=== PATIENT | male | born 1955 | race American Indian/Alaskan Native ===

== ENCOUNTER 2017-06-17 14:32 | Inpatient (IN) | payer MEDICARE, OTHER ==
--- NOTE | 2017-06-17 15:23 | Emergency Department Report ---
ED General Adult HPI - General Chief complaint: Puncture Wound Stated complaint: DIALYSIS PORT BLEEDING Time Seen by Provider: 06/17/17 14:53 Source: EMS Mode of arrival: Stretcher Limitations: No Limitations - History of Present Illness Initial comments: He presents emergency Department with complaint of bleeding from left arm dialysis access after puncture wound. Patient was the axis is approximately 1: 30 PM but continued to bleed until now. Direct pressure was applied at the dialysis center however he continues to have significant bleeding. No lightheadedness dizziness appears otherwise well. -: Sudden Location: upper extremity (left arm) Radiation: non-radiation Severity scale (0 -10): 0 Improves with: none Worsens with: none Associated Symptoms: denies other symptoms - Related Data Allergies Allergy/AdvReac Type Severity Reaction Status Date / Time shellfish derived Allergy Swelling Verified 06/17/17 14:51 ED Review of Systems ROS: Stated complaint: DIALYSIS PORT BLEEDING Other details as noted in HPI Comment: All other systems reviewed and negative Constitutional: denies: chills, diaphoresis Cardiovascular: denies: chest pain, palpitations Gastrointestinal: denies: abdominal pain, nausea Musculoskeletal: back pain ED Past Medical Hx - Past Medical History Previous Medical History?: Yes Hx Hypertension: Yes Hx Diabetes: Yes Hx Renal Disease: Yes - Surgical History Past Surgical History?: Yes Hx Cholecystectomy: Yes Hx Appendectomy: Yes - Social History Smoking Status: Never Smoker Substance Use Type: Marijuana ED Physical Exam - General Limitations: No Limitations General appearance: alert, in no apparent distress - Head Head exam: Present: atraumatic, normocephalic - Eye Eye exam: Present: normal appearance. Absent: scleral icterus - ENT ENT exam: Present: normal exam - Neck Neck exam: Present: normal inspection - Respiratory Respiratory exam: Present: normal lung sounds bilaterally. Absent: respiratory distress - Cardiovascular Cardiovascular Exam: Present: regular rate, normal rhythm - GI/Abdominal GI/Abdominal exam: Present: soft - Extremities Exam Extremities exam: Present: other (small puncture wound in the left upper extremity with active arterial bleeding) - Neurological Exam Neurological exam: Present: alert, oriented X3 - Psychiatric Psychiatric exam: Present: normal affect - Skin Skin exam: Present: warm, dry, intact ED Course Vital Signs 06/17/17 06/17/17 06/17/17 14:34 14:48 17:05 Temperature 98.4 F 98.4 F Pulse Rate 64 64 74 Respiratory 16 16 16 Rate Blood Pressure 132/80 Blood Pressure 132/80 127/70 [Right] O2 Sat by Pulse 98 96 95 Oximetry ED Medical Decision Making - Lab Data Result diagrams: 06/17/17 15:26 Laboratory Results - last 24 hr 06/17/17 06/17/17 15:23 15:26 WBC 9.9 RBC 4.90 Hgb 15.6 H Hct 47.5 H MCV 97 H MCH 32 MCHC 33 RDW 15.8 H Plt Count 235 Lymph % (Auto) 11.1 L [place] % (Auto) 9.5 H Eos % (Auto) 1.1 Baso % (Auto) 0.6 Lymph # 1.1 L [place] # 0.9 H Eos # 0.1 Baso # 0.1 Seg Neutrophils % 77.7 H Seg Neutrophils # 7.7 PT 14.2 INR 1.05 - Medical Decision Making 62-year-old male with a history of end-stage renal disease here with left arm bleeding from his dialysis access. Clamp placed by dialysis center at 1:30 PM. On my evaluation puncture wound is still bleeding. Surgicel placed with clamp and reassessed approximately 45 minutes later. Still bleeding. Discussed case with asthma surgery. They came and repaired wound with a single [id number] suture. Given this bleeding episode that surgery recommends that the patient have fistulogram. Pointing to admit the patient to the hospital for the fistulogram. Dr. Lugo evaluated the patient in the emergency department. Plan to give doses of IV DDAVP and place patient on nothing by mouth. Will admit to IMS. Portions of this chart were dictated with dictation software. There may be dictation errors contained within this note. Critical Care Time: Yes Critical care attestation.: If time is entered above; I have spent that time in minutes in the direct care of this critically ill patient, excluding procedure time. Critical Care Time: 35 ED Disposition Clinical Impression: Bleeding from dialysis shunt Disposition: - OP ADMIT IP TO THIS HOSP Is pt being admited?: Yes Condition: Stable Referrals: PRIMARY CARE, [Primary Care Provider] - 3-5 Days
[2017-06-17 15:47] LABS: Basophils % (Auto) 0.6 % (0.0-1.8); Eosinophils % (Auto) 1.1 % (0.0-4.3); Hematocrit 47.5 % (35.5-45.6); Hemoglobin 15.6 gm/dl (11.8-15.2); Mean Corpuscular HGB Conc 33 % (32-34); Mean Corpuscular Hemoglobin 32 pg (28-32); Mean Corpuscular Volume 97 fl (84-94); Platelet Count 235 K/mm3 (140-440); Red Cell Distribution Width 15.8 % (13.2-15.2); White Blood Count 9.9 K/mm3 (4.5-11.0)
[2017-06-17 15:59] LABS: INR 1.05 (0.87-1.13)
[2017-06-17] MEDS ORDERED: XYLOCAINE 1%/ EPI 1:100,000 INFILTRATI NR (17:00)
--- NOTE | 2017-06-17 17:39 | Consultation ---
History of Present Illness - Reason for Consult Consult date: 06/17/17 Bleeding from LUE AVF Requesting physician: YOVANNY DANIELLE - History of Present Illness This pt is a 62 yo AAM with ESRD who presented to the ER at [facility] due to bleeding from his LUE AVF. [facility]. He has had 1 previous fistulagram with angioplasty several months ago. A vascular surgery consult was requested to further evaluate. Past History Past Medical History: diabetes, dialysis, ESRD, hypertension Past Surgical History: appendectomy, cholecystectomy, Other (LUE avf (?elevated Brachio-basilic ) creation by [facility] ~2.5 yrs ago, fistulagram with angioplasty several months ago.) Social history: other (marijuana use). denies: smoking Family history: no significant family history Medications and Allergies Allergies Allergy/AdvReac Type Severity Reaction Status Date / Time shellfish derived Allergy Swelling Verified 06/17/17 14:51 Active Meds: Active Medications Lidocaine/Epinephrine (Xylocaine 1%/ Epi 1:100,000) 20 ml INFILTRATI ONCE NR Stop: 06/17/17 19:00 Lidocaine/Epinephrine (Xylocaine 2%/Epi 1:100,000) 20 ml INFILTRATI ONCE ONE Stop: 06/17/17 18:01 Review of Systems All systems: negative Exam - Constitutional Vitals: Temp Pulse Resp BP Pulse Ox 98.4 F 74 16 127/70 95 06/17/17 14:48 06/17/17 17:05 06/17/17 17:05 06/17/17 17:05 06/17/17 17:05 General appearance: Present: no acute distress - EENT Eyes: Present: EOM intact ENT: hearing intact - Neck Neck: Present: supple - Respiratory Respiratory effort: normal - Extremities Extremities: no ischemia, abnormal (LUE avf with C-clamp in place. Once removed pt was bleeding from small puncture site easily controlled with light pressure from 1 finger. Palp thrill. ) - Psychiatric Psychiatric: appropriate mood/affect, intact judgment & insight, cooperative - Neurologic Neurologic: no focal deficits Results - Labs CBC & Chem 7: 06/17/17 15:26 Labs: Abnormal lab results 06/17/17 Range/Units 15:26 Hgb 15.6 H (11.8-15.2) gm/dl Hct 47.5 H (35.5-45.6) % MCV 97 H (84-94) fl RDW 15.8 H (13.2-15.2) % Lymph % (Auto) 11.1 L (13.4-35.0) % [place] % (Auto) 9.5 H (0.0-7.3) % Lymph # 1.1 L (1.2-5.4) K/mm3 [place] # 0.9 H (0.0-0.8) K/mm3 Seg Neutrophils % 77.7 H (40.0-70.0) % Assessment and Plan Pt present to the ER at [facility] due to bleeding from his LUE AVF. A vascular surgery consult was requested to further eval. Dr Lugo placed a 3-0 prolene suture at the puncture site, and bleeding was controlled. Would recommend giving DDAVP due to Plt dysfunction associated with renal failure, which likely has contributed to the situation. Pt needs fistulagram, and possible angioplasty of AV access. 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 This should be completed prior to his next HD treatment or else he will likely have a similar result. If this can not be arranged by the [facility] in a timely fashion, he can be admitted and the procedure will be completed tomorrow by our service. The R,B, and A were discussed with the Pt who stated understanding and has agreed to proceed. If the pt is admitted, please place consult to our service, and add to our list. Thank you. - Patient Problems (1) Dialysis AV fistula malfunction Current Visit: Yes Status: Acute Qualifiers: Encounter type: E (2) ESRD (end stage renal disease) on dialysis Current Visit: Yes Status: Acute (3) Hypertension Current Visit: Yes Status: Acute Qualifiers: Hypertension type: H (4) Diabetes Current Visit: Yes Status: Acute Qualifiers: Diabetes mellitus type: D Diabetes mellitus complication status: D Diabetes mellitus complication detail: D Diabetic retinopathy severity: D Proliferative retinopathy type: P Diabetes mellitus macular edema: D Diabetes mellitus senior living insulin use: D Laterality: L Chronic kidney disease stage: C
[2017-06-17] MEDS ORDERED: XYLOCAINE 2%/EPI 1:100,000 INFILTRATI ONE (18:00)
[2017-06-17] MEDS ORDERED: DDAVP 20 MCG in NACL 0.9% 50 ML IV ONE (18:00)
--- NOTE | 2017-06-17 18:13 | History and Physical Report ---
History of Present Illness Chief complaint: Im bleeding all over the place History of present illness: 62 YO Male with ESRD on HD(M,W,F), HTN, DM presents to ED for evaluation. Pt states that he has experienced bleeding from his AV fistula site for the past 3 hours. Pt states that symptoms began after his site was accessed for dialysis. Pt denies fever, chills, CP, Palpitations, NVD, syncope, or recent ill contacts. Pt seen and evaluated in ED and found to have bleeding from AV fistula site. Vascular surgery consulted, and bleeding controlled with placement of suture. Past History Past Medical History: diabetes, dialysis, ESRD, hypertension Past Surgical History: appendectomy, cholecystectomy, Other (LUE avf (?elevated Brachio-basilic ) creation by [facility] ~2.5 yrs ago, fistulagram with angioplasty several months ago.) Social history: other (marijuana use). denies: smoking Family history: no significant family history, other (reviewed) Medications and Allergies Allergies Allergy/AdvReac Type Severity Reaction Status Date / Time shellfish derived Allergy Swelling Verified 06/17/17 14:51 Home Medications Medication Instructions Recorded Confirmed Last Taken Type Ascorbic Acid [Vitamin C with Courtney 1.5 tab PO TID 06/17/17 06/17/17 Unknown History Hips] Aspirin [Adult Low Dose Aspirin EC] 81 mg PO QDAY 06/17/17 06/17/17 Unknown History Calcium Acetate [Calcium Acetate] 4 cap PO QID 06/17/17 06/17/17 Unknown History Furosemide [Lasix TAB] 120 mg PO BID 06/17/17 06/17/17 Unknown History Metoprolol [Lopressor TAB] 25 mg PO BID 06/17/17 06/17/17 Unknown History amLODIPine [Norvasc] 5 mg PO QDAY 06/17/17 06/17/17 Unknown History Active Meds: Active Medications Desmopressin Acetate 20 mcg/ (Sodium Chloride) 55 mls @ 100 mls/hr IV ONCE.ED ONE Stop: 06/17/17 18:32 Lidocaine/Epinephrine (Xylocaine 1%/ Epi 1:100,000) 20 ml INFILTRATI ONCE NR Stop: 06/17/17 19:00 Review of Systems Constitutional: no weight loss, no weight gain Ears, nose, mouth and throat: no ear pain Cardiovascular: no chest pain Respiratory: no cough with sputum Gastrointestinal: no nausea, no vomiting Genitourinary Male: no hematuria Rectal: no pain Musculoskeletal: no neck pain Integumentary: no rash Neurological: no head injury Psychiatric: no anxiety Endocrine: no cold intolerance, no heat intolerance Hematologic/Lymphatic: no easy bruising, no easy bleeding Allergic/Immunologic: no urticaria Exam - Constitutional Vitals: Temp Pulse Resp BP Pulse Ox 98.4 F 74 16 127/70 95 06/17/17 14:48 06/17/17 17:05 06/17/17 17:05 06/17/17 17:05 06/17/17 17:05 General appearance: Present: mild distress - EENT Eyes: Present: PERRL ENT: hearing intact, clear oral mucosa - Neck Neck: Present: supple, normal ROM - Respiratory Respiratory effort: normal Respiratory: bilateral: CTA - Cardiovascular Heart Sounds: Present: S1 & S2. Absent: rub, click - Extremities Extremities: pulses symmetrical, No edema Extremity abnormal: other (LUE bleeding) Peripheral Pulses: within normal limits - Abdominal General gastrointestinal: Present: soft, non-tender, non-distended, normal bowel sounds Male genitourinary: Present: normal - Integumentary Integumentary: Present: clear, warm, dry - Musculoskeletal Musculoskeletal: gait normal, strength equal bilaterally - Psychiatric Psychiatric: appropriate mood/affect, intact judgment & insight - Neurologic Neurologic: CNII-XII intact, moves all extremities Results - Labs CBC & Chem 7: 06/17/17 15:26 Labs: Abnormal lab results 06/17/17 Range/Units 15:26 Hgb 15.6 H (11.8-15.2) gm/dl Hct 47.5 H (35.5-45.6) % MCV 97 H (84-94) fl RDW 15.8 H (13.2-15.2) % Lymph % (Auto) 11.1 L (13.4-35.0) % [place] % (Auto) 9.5 H (0.0-7.3) % Lymph # 1.1 L (1.2-5.4) K/mm3 [place] # 0.9 H (0.0-0.8) K/mm3 Seg Neutrophils % 77.7 H (40.0-70.0) % Assessment and Plan - Patient Problems (1) Dialysis AV fistula malfunction Current Visit: Yes Status: Acute Qualifiers: Encounter type: E Plan to address problem: Vascular surgery consulted, fistulagram in am, repeat physical exam (2) Diabetes Current Visit: Yes Status: Resolved Qualifiers: Diabetes mellitus type: D Diabetes mellitus complication status: D Diabetes mellitus complication detail: D Diabetic retinopathy severity: D Proliferative retinopathy type: P Diabetes mellitus macular edema: D Diabetes mellitus jail insulin use: D Laterality: L Chronic kidney disease stage: stage 4 (severe) Plan to address problem: ADA diet, insulin accu check (3) ESRD (end stage renal disease) on dialysis Current Visit: Yes Status: Acute Plan to address problem: Nephrology consulted, dialysis as per renal schedule (4) Hypertension Current Visit: Yes Status: Acute Qualifiers: Hypertension type: H Plan to address problem: monitor bp q shift, resume home medication (5) DVT prophylaxis Current Visit: Yes Status: Acute
[2017-06-17] MEDS ORDERED: PROVENTIL IH PRN (18:14)
[2017-06-17] MEDS ORDERED: ZOFRAN IV PRN (18:14)
[2017-06-17] MEDS ORDERED: TYLENOL PO PRN (18:14)
--- NOTE | 2017-06-17 18:16 | Admit Criteria Form ---
Admission Criteria Documentation: GENERAL ADMISSION CRITERIA (Place 'X' for any and all applicable criteria): Admission is indicated for ANY ONE of the following: [ ]I. Hemodynamic instability as indicated by ANY ONE of the following(1)(2) (3)(4)(5): [ ]a) Vital sign abnormality not readily corrected by appropriate treatment within 12 to 24 hours indicated by ANY ONE of the following: [ ]i) Hypotension [ ]ii) Symptomatic Tachycardia unresponsive to treatment (eg , analgesia, fluids, sedation as indicated) [ ]iii) Orthostatic vital sign changes unresponsive to treatment (eg, fluids) [ ]b) Vital sign abnormality that is severe indicated by ANY ONE of the following: [ ]i) Inadequate perfusion indicated by ANY ONE of the following: [ ]1) Lactic acidosis (greater than 2 mmol/L) [ ]2) New abnormal capillary refill (greater than 3 seconds) [ ]3) Other metabolic acidosis (arterial pH less than 7.35) not otherwise explained [ ]4) Reduced urine output [ ]5) Altered mental status [ ]6) Myocardial Ischemia [ ]v) Mean arterial pressure[A] less than 60 mm Hg [ ]vi) Mean arterial pressure[A] less than 70 mm Hg after 30 minutes of appropriate treatment (eg, fluid resuscitation) [ ]vii) IV inotropic or vasopressor medication required to maintain adequate blood pressure or perfusion [ ]viii) Sustained heart rate greater than 120 beats per minute in adult or child 6 years or older[B]] [ ]II. Hypertension requiring inpatient treatment as indicated by ANY ONE of the following(6)(7)(8): [ ]a) SBP greater than 220 mm Hg or DBP greater than 120 mm Hg despite treatment [ ]b) SBP greater than 140 mm Hg or DBP greater than 100 mm Hg with evidence of acute end organ damage as indicated by ANY ONE of the following: [ ]i) Encephalopathy [ ]ii) Acute renal failure as indicated by new onset of ANY ONE of the following(9)(10)(11)(12)(13): [ ]1) A 3-fold rise in serum creatinine from baseline [ ]2) Serum creatinine greater than 4 mg/dL ( 354 micromoles/L) with acute rise greater than 0.5 mg/dL (44.2 micromoles/L) [ ]3) Reduction of more than 75% in estimated glomerular filtration rate from baseline [ ]4) Estimated glomerular filtration rate less than 35 mL/min/1.73m2 (0.59 mL/sec/1.73m2) in child up to 18 years of age [ ]5) Cessation of urine output indicated by ALL of the following: [ ]A. Adequate volume status [ ]B. Inadequate urine output as indicated by ANY ONE of the following: [ ]a. Urine output less than 0.3 mL/kg/hr for 24 hours [ ]b. Anuria (urine output less than 0.1 mL/kg/hr) for 12 hours [ ]iii) Aortic dissection [ ]iv) Myocardial ischemia [ ]v) Left ventricular heart failure [ ]vi) Retinal hemorrhage [ ]vii) Other significant finding [ ]c) Hypertension in child requiring inpatient treatment as indicated by ALL of the following(14)(15)(16): [ ]i) Outpatient treatment not effective, not available, or not appropriate [ ]ii) SBP or DBP greater than 95th percentile for age [ ]iii) Evidence of acute end organ damage as indicated by ANY ONE of the following: [ ]1) Altered mental status [ ]2) Acute renal failure as indicated by new onset of ANY ONE of the following(9)(10)(11)(12)(13): [ ]A. A 3-fold rise in serum creatinine from baseline [ ]B. Serum creatinine greater than 4 mg/dL (354 micromoles/L) with acute rise greater than 0.5 mg/dL (44.2 micromoles/L) [ ]C. Reduction of more than 75% in estimated glomerular filtration rate from baseline [ ]D. Estimated glomerular filtration rate less than 35 mL/min/1.73m2 (0.59 mL/sec/1.73m2)in child up to 18 years of age [ ]E. Cessation of urine output indicated by ALL of the following: [ ]a. Adequate volume status [ ]b. Inadequate urine output as indicated by ANY ONE of the following: [ ]1) Urine output less than 0.3 mL/kg/hr for 24 hours [ ]2) Anuria (urine output less than 0.1 mL/kg/hr) for 12 hours [ ]3) Severe headache [ ]4) Visual disturbance [ ]5) Retinal hemorrhage [ ]6) Other significant finding [ ]III. Acute cardiac or peripheral ischemia as indicated by ANY ONE of the following: [ ]a) Acute coronary syndrome(17)(18) [ ]b) Acute peripheral ischemia (eg, pulseless, cool, mottled, or cyanotic extremity)(19) [ ]IV. Cardiac arrhythmias or findings of immediate concern indicated by ANY ONE of the following(20)(21): [ ]a) Heart rhythms that are inherently dangerous or unstable indicated by ANY ONE of the following(22)(23)(24): [ ]i) Resuscitated ventricular fibrillation or cardiac arrest [ ]ii) Ventricular escape rhythm [ ]iii) Sustained ventricular tachycardia (30 seconds or more of ventricular rhythm at greater than 100 beats per minute) [ ]iv) Nonsustained ventricular tachycardia and ANY ONE of the following: [ ]1) Suspected cardiac ischemia as cause or consequence of ventricular tachycardia [ ]2) In setting of acute myocarditis [ ]b) Unstable cardiac conduction defects indicated by ANY ONE of the following(24)(25)(26): [ ]i) Type II second-degree atrioventricular block [ ]ii) Third-degree atrioventricular block [ ]iii) New-onset left bundle branch block with suspected myocardial ischemia [ ]c) Any heart rhythm and ANY ONE of the following(22)(23)(27)(28)( 29): [ ] i) Continuous long-term ECG monitoring needed (eg, initiation of drug requiring monitoring for more than 24 hours) [ ] ii) Patient has automatic implanted cardioverter defibrillator that is repeatedly firing, malfunctioning, or in need of immediate adjustment of settings beyond the scope of ambulatory or observation care. [ ]d) Heart rhythms of concern due to ANY ONE of the following: [ ]i) Hypotension [ ]ii) Respiratory distress [ ]iii) Association with other significant symptoms (eg, bradycardia with syncope or ongoing dizziness, supraventricular tachycardia with chest pain) (27)(28) (30) [ ] V. Severe heart failure as indicated by ANY ONE of the following ( 31)(32): [ ]a) Respiratory distress [ ]b) Hypotension [ ]c) Anasarca (refractory to outpatient therapy) [ ]d) Cardiac arrhythmias of immediate concern [ ]e) Myocardial ischemia [ ]. Respiratory abnormalities, including ANY ONE of the following(33)(34) (35)(36): [ ]a) Respiratory rate greater than 30 breaths per minute unresponsive to treatment [A] [ ]b) New saturation of arterial oxygen less than 90% [ ]c) New partial pressure of carbon dioxide greater than 44 mm Hg ( 5.9 kPa) [ ]d) Supplemental oxygen or respiratory treatments needed that are new or not performable at other levels of care [ ]e) New-onset cyanosis [ ]f) Inability to protect airway [ ]g) Chronic lung disease with severe deterioration (not responsive to emergency and observation care treatment as appropriate) as indicated by ANY ONE of the following(34)(36 ): [ ]i) SaO2 5% below baseline in patient with chronic hypoxemia [ ]ii) New requirement for supplemental oxygen to keep SaO2 at baseline or acceptable level [ ]iii) Required supplemental oxygen performable only in acute inpatient setting [ ]iv) Severe airflow or ventilation abnormalities [ ]v) Previously mobile patient unable to walk between rooms [ ]vi Inability to eat or sleep due to dyspnea [ ]vii) Rapid rate of exacerbation onset [ ]viii) Altered mental status ]VII. Severe airflow or ventilation abnormalities (not responsive to emergency and observation care treatment as appropriate) as indicated by ANY ONE of the following(33)(34)(35)(37): [ ]a) PCO2 greater than 42 mm Hg (5.6 kPa) and pH less than 7.35 (new ) [ ]b) Documented PCO2 increased more than 5 mm Hg (0.7 kPa) from disease baseline [ ]c) Airflow measurements [B] less than 60% of previous best or predicted (eg, peak expiratory flow rate less than 300 L/minute) despite intensive emergent treatment [C] [ ]d) Required respiratory treatments that are performable only in acute inpatient setting [ ]VIII. Impending or actual respiratory arrest ( Also use Respiratory Failure GRG for severe respiratory disease and long-term mechanical ventilation patients) [ ]IX. Neurologic abnormalities, including ANY ONE of the following: [ ]a) New findings that suggest ANY ONE of the following: [ ]i) [employer] infection(38) [ ]ii) Cerebral bleeding, ischemia, or vasospasm(39)(40) [ ]iii) Increased intracranial pressure, hydrocephalus, or cerebral edema(41)(42)(43) [ ]iv) Spinal cord injury(44) [ ]b) Uncontrolled seizures(45) [ ]c) New-onset coma (eg, Cobb coma scale score less than 9) or unexplained abnormal mental status (eg, Cobb coma scale score less than 14) [D](41)(46)(47) [ ]X. New-onset severe neurologic findings requiring inpatient care; examples include(42)(48)(49): [ ]a) Papilledema [ ]b) Cerebral edema [ ]c) Mass effect on CT scan [ ]XI. Suspected acute intra-abdominal process with peritoneal signs, abdominal mass, or similar findings (50)(51)(52) [ ]XII. Severe physiologic disorder remaining after emergency or observation level care (as appropriate) as indicated by ANY ONE of the following (53): [ ]a) Significant dehydration [ ]b) Diabetic ketoacidosis [ ]c) Hyperglycemic hyperosmolar state (eg, osmolality greater than 320 mOsm/kg (mmol/kg) [ ]d) Hypoglycemia [ ]e) Other (new) acid-base disorder with pH less than 7.35 or greater than 7.5(54) [ ]f) Thyroid storm (55) [ ]g) Myxedema coma (55) [ ]XIII. Abdominal abnormalities with ANY ONE of the following(56)(57): [ ]a) Absent bowel sounds with complete ileus [ ]b) Signs of intestinal obstruction or peritonitis [E] [ ]c) Nausea and vomiting that cannot be controlled with outpatient or observation care [ ]XIV. Acute renal failure as indicated by new onset of ANY ONE of the following(9)(10)(11)(12)(13): [ ]a) A 3-fold rise in serum creatinine from baseline [ ]b) Serum creatinine greater than 4 mg/dL (354 micromoles/L) with acute rise greater than 0.5 mg/dL (44.2 micromoles/L) [ ]c) Reduction of more than 75% in estimated glomerular filtration rate from baseline [ ]d) Estimated glomerular filtration rate less than 35 mL/min/ 1.73m2 (0.59 mL/sec/1.73m2) in child up to 18 years of age [ ]e) Cessation of urine output indicated by ALL of the following: [ ]i) Adequate volume status [ ]ii) Inadequate urine output as indicated by ANY ONE of the following: [ ]1) Urine output less than 0.3 mL/kg/hr for 24 hours [ ]2) Anuria (urine output less than 0.1 mL/kg/hr) for 12 hours [ ]XV. Significant uremic complications as indicated by ANY ONE of the following(58)(59)(60): [ ]a) Outpatient therapy is ineffective or not feasible for ANY ONE of the following: [ ]i) Severe heart failure [ ]ii) Severehypertension [ ]iii) Pleural effusion [ ]iv) Pericarditis or pericardial effusion [ ]b) Cardiac arrhythmias of immediate concern [ ]c) Intractable nausea or vomiting [ ]d) Recurrent seizures [ ]e) Encephalopathy [ ]f) Bleeding abnormalities (eg, platelet dysfunction) with active (eg, gastrointestinal) bleeding [ ]g) Dialysis indicated before long-term access or ambulatory arrangements can be made [ ]h) Significant metabolic or electrolyte abnormalities (eg, severe acidosis or hyperkalemia) [ ]XVI. High fever or other high-risk infection situation as indicated by ANY ONE of the following(61)(62)(63)(64): [ ]a) Outpatient and observation care antimicrobial treatment unavailable, not effective, or not appropriate [ ]b) Documented bacteremia [ ]c) Temperature greater than 40.5 degrees C (104.9 degrees F) ( oral) [ ]d) Temperature greater than 39.5 degrees C (103.1 degrees F) ( oral) or less than 36 degrees C (96.8 degrees F) (rectal) that does not respond to e treatment and observation care [ ] XVII. Temperature less than 95 degrees F (35 degrees C)(rectal)(65) [ ] XVIII. Severe nutritional abnormalities as indicated by ALL of the following (66)(67): [ ]a) Inability to tolerate or establish sufficient oral or other enteral nutrition in outpatient setting [ ]b) Parenteral nutrition regimen need that must be implemented on inpatient basis [ ] XIX. Severe electrolyte abnormalities indicated by ALL of the following(68) (69)(70): [ ]a) Electrolytes and associated findings are not as expected for patient baseline or acceptable treatment effects. [ ]b) Severe abnormalities indicated by ANY ONE of the following: [ ]i) Sodium less than 130 mEq/L (mmol/L) (new) [ ]ii)Sodium less than 135 mEq/L (mmol/L) with ANY ONE of the following: [ ]1) Uncorrectable (to near normal or chronic baseline) after trial of outpatient and emergency treatment [ ]2) Altered mental status [ ]3) Seizures [ ]4) Severe medical etiology requiring inpatient management (eg, heart failure, hypovolemia) [ ]iii) Sodium greater than 155 mEq/L (mmol/L) [ ]iv) Sodium greater than 150 mEq/L (mmol/L) with ANY ONE of the following: [ ]1) Uncorrectable (to near normal or chronic baseline) with outpatient and emergency treatment [ ]2) Altered mental status [ ]3) Seizures [ ]4) Severe medical etiology (eg, hypovolemia, diabetes insipidus) [ ]v) Potassium less than 2.5 mEq/L (mmol/L) despite outpatient and emergency treatment [ ]vi) Potassium less than 3 mEq/L (mmol/L) with ANY ONE of the following: [ ]1) Weakness [ ]2) Cardiac abnormality (eg, arrhythmia, conduction disturbance) [ ]3) Cardiac ischemia [ ]4) Ileus [ ]5) Ongoing medical cause requiring inpatient management (eg, acute renal wasting or SIADH) [ ]6) Other severe symptoms [ ]vii) Potassium greater than 6.5 mEq/L (mmol/L) [ ]viii) Potassium greater than 5 mEq/L (mmol/L) with ANY ONE of the following: [ ]1) Uncorrectable (to near normal or chronic baseline) with outpatient and emergency treatment [ ]2) Severe ECG findings [F] [ ]3) Acute worsening of renal failure (creatinine greater than 2.5 mg/dL (221 micromoles/L) or significant elevation for age and size) [ ]4) Severe weakness [ ]5) Severe medical etiology (eg, hemolysis, infection, drug overdose) [ ]ix) Calcium less than 7 mg/dL (1.75 mmol/L) despite outpatient and emergency treatment (72) [ ]x) Calcium less than 8 mg/dL (2 mmol/L) with significant symptoms or findings; examples include(72): [ ]1) Altered mental status [ ]2) Muscle spasms [ ]3) Seizures [ ]4) Breathing difficulty [ ]5) Cardiac abnormality (eg, arrhythmia or conduction disturbance) [ ]xi) Calcium greater than 14 mg/dL (3.5 mmol/L)(72) [ ]xii) Calcium greater than 12 mg/dL (3 mmol/L) with ANY ONE of the following(72): [ ]1) Uncorrectable (to near normal or chronic baseline) with outpatient and emergency treatment [ ]2) Significant dehydration or hypovolemia as indicated by ALL of the following(70)(73)(74): [ ]A. Not resolved with initial treatments [ ]B. Clinically significant dehydration as indicated by ANY ONE of the following: [ ]a. Vomiting refractory to outpatient treatment (ie, precluding oral rehydration) [ ]b. Inability to drink [ ]c. Hypernatremia or other electrolyte abnormality unable to be corrected with outpatient and emergency treatment [ ]d. Failure to remain hydrated with outpatient therapy [ ]e. Reduced urine output [ ]f. Hypotension [ ]g. Serious cause for dehydration requiring acute hospitalization (eg, bowel obstruction, increased intracranial pressure, infectious cause) [ ]h. Child with ANY ONE of the following(75): [ ]1) Severe abdominal tenderness [ ]2) Adequate care not available at home [ ]3) Severe dehydration ( greater than 9% loss of body weight) [ ]4) Significant symptoms or findings; examples include: [ ]A. Altered mental status [ ]B. Cardiac abnormality (eg, arrhythmia, conduction disturbance) [ ]C. Malignant etiology requiring inpatient treatment [ ]xiii) Phosphorus less than 1 mg/dL (0.32 mmol/L) [ ]xiv) Phosphorus less than 1.5 mg/dL (0.48 mmol/L) with ANY ONE of the following: [ ]1) Patient unresponsive to outpatient and emergency treatment [ ]2) Significant symptoms or findings; examples include: [ ]A. Weakness [ ]B. Altered mental status [ ]C. Breathing difficulty [ ]D. Seizures [ ]E. Rhabdomyolysis [ ]xv) Phosphorus greater than 10 mg/dL (3.2 mmol/L) [ ]xvi) Phosphorus greater than 4.5 mg/dL (1.45 mmol/L) (new) with ANY ONE of the following: [ ]1) Severe medical etiology (eg, crush injury, acute renal failure) [ ]2) Associated hypocalcemia with significant findings; examples include: [ ]A. Neurologic symptoms [ ]B. Altered mental status [ ]C. Muscle spasms [ ]D. Seizures [ ]E. Breathing difficulty [ ]F. Cardiac abnormality (eg, arrhythmia, conduction disturbance) [ ]xvii) Magnesium less than 1 mg/dL (0.41 mmol/L) [ ]xviii) Magnesium less than 1.5 mg/dL (0.62 mmol/L) with ANY ONE of the following: [ ]1) Patient unresponsive to outpatient and emergency treatment [ ]2) Associated hypocalcemia with significant findings; examples include: [ ]A. Altered mental status [ ]B. Muscle spasms [ ]C. Seizures [ ]D. Breathing difficulty [ ]E. Cardiac abnormality (eg, arrhythmia , conduction disturbance) [ ]3) Associated hypokalemia (potassium less than 3 mEq/L (mmol/L)) with risk of arrhythmia [ ]xix) Magnesium greater than 4 mEq/L (2 mmol/L) [ ]xx) Magnesium greater than 2.5 mEq/L (1.25 mmol/L) with significant symptoms or findings; examples include: [ ]1) Weakness [ ]2) Altered mental status [ ]3) Cardiac abnormality (eg, arrhythmia, conduction disturbance) [ ]4) Breathing difficulty [ ]5) Severe medical etiology (eg, renal failure, hypovolemia) [ ]xxi) Uric acid greater than 20 mg/dL (1190 micromoles/L)(76) [ ]xxii) Uric acid greater than 8 mg/dL (476 micromoles/L) with significant symptoms or findings of tumor lysis syndrome; examples include(76): [ ]1) Creatinine greater than 1.5 times upper limit of normal [ ]2) Cardiac abnormality (eg, arrhythmia, conduction disturbance) [ ]3) Seizure [X ]XX. Acute blood loss causing significant abnormality as indicated by ANY ONE of the following(77)(78): [ ]a) Hemoglobin less than 10 g/dL (100 g/L) (not baseline) [ ]b) Hematocrit less than 30% (0.30) (not baseline) [ ]c) Repeat hematocrit decreased more than 2% (0.02) [X ]d) Uncontrolled bleeding [ ]XXI. Severe anemia indicated by ANY ONE of the following(78)(79): [ ]a) Altered mental status [ ]b) Chest pain [ ]c) Exertional dyspnea [ ]d) Syncope [ ]e) Other findings suggesting inadequate perfusion [ ]f) Treatment with transfusion or volume replacement is ineffective at resolving ANY ONE of the following [G]: [ ]i) Tachycardia for age [ ]ii) Orthostatic vital sign changes as indicated by ANY ONE of the following(80): [ ]1) Fall in SBP of 20 mm Hg or more 1 to 3 minutes after patient sits or stands from recumbent position [ ]2) Fall in DBP of 10 mm Hg or more 1 to 3 minutes after patient sits or stands from recumbent position [ ]XXII. High-risk low platelet count as indicated by ANY ONE of the following( 81)(82): [ ]a) Severe or life-threatening bleeding (eg, intracranial, major gastrointestinal, or extensive mucosal bleeding), with any reduced platelet count [ ]b) Platelet count less than 20,000/mm3 (20 x109/L) with any active bleeding [ ]c) Platelet count less than 10,000/mm3 (10 x109/L) with minor purpura or petechiae [ ]d) Platelet count less than 5000/mm3 (5 x109/L) [ ]e) Low platelet count with hemolytic anemia [ ]XXIII. Disseminated intravascular coagulation(77)(83) [ ]XXIV. Severe adverse drug or systemic toxin reaction requiring inpatient treatment; examples include(84)(85): [ ]a) Serotonin syndrome(86) [ ]b) Neuroleptic malignant syndrome(86) [ ]c) Cholinergic syndrome with severe symptoms (eg, bronchorrhea, weakness, mental status changes, seizures) [ ]d) Sympathetic syndrome with severe symptoms (eg, seizures, mental status changes, cardiac dysrhythmias) [ ]e) Anticholinergic syndrome [ ]XXV. Severe pain requiring acute inpatient management as indicated by ALL of the following (87)(88)(89): [ ]a) Continuous or frequent (eg, every 2 to 4 hours) parenteral analgesics required [H] [ ]b) Rapid improvement expected from treatment or acute intervention (eg, surgery, anesthesia procedure) [ ]XXVI.Severe behavioral health issues judged unmanageable at a lower level of care (eg, residential) in a patient who is ANY ONE of the following(91) [ ]a) Acutely suicidal [ ]b) A danger to self (eg, self-mutilating or suicidal behavior) [ ]c) A danger to others (eg, assaultive or homicidal behavior) [ ]d) Incapacitated because of grave disability (eg, inability to provide for self at lower level of care) (92) [ ]XXVII. Inpatient monitoring needed; examples include(1)(3)(87)(93)(94)(95)(96 ): [ ]a) Vital signs, neurologic signs, or vascular checks more frequently than every 4 hours [ ]b) Cardiac or respiratory monitoring beyond the scope (eg, over 24 hours) of observation care [ ]c) Pulmonary artery catheter monitoring [ ]d) Suspected compartment syndrome(97) (98) [ ]e) Cerebral bleeding, hydrocephalus, or vasospasm monitoring [ ]f) Increased intracranial pressure or cerebral edema monitoring [ ]g) monitoring [ ]XXVIII. Treatment requiring inpatient care; examples include: [ ]a) IV fluid to replace significant ongoing losses (greater than 3 L/m2 per day)(53) [ ]b) High concentration oxygen (greater than 40%)(33)(99)(100) [ ]c) Frequent respiratory therapy (more frequently than every 4 hours) to maintain airflow rates greater than 60% of baseline(33)(99)(100) [ ]d) Epidural analgesia(87) [ ]e) IV anticoagulation, vasoactive, or antiarrhythmic medication(19 )(23) [ ]f) Acute thrombolytics (generally require 24 hours of observation )(101)(102) [ ]XXIX. Emergency procedures needed; examples include: [ ]a) Emergency inpatient surgery [ ]b) Temporary pacemaker placement(103) [ ]c) Chest tube placement with active evacuation (eg, suction, drainage)(104) [ ]d) Emergent cardioversion(105) [ ]e) Emergent cardiac or vascular procedures (eg, cardiac catheterization, angioplasty) (17)(18) [ ]f) Emergent dialysis access placement and institution(10)(106) [ ]g) Emergent pericardiocentesis(107) [ ]h) Emergent plasmapheresis or leukapheresis(83) [ ]i) Emergent tracheostomy The original [employer] content created by [employer] has been revised. The portions of the content which have been revised are identified through the use of italic text or in bold, and [employer] has neither reviewed nor approved the modified material. All other unmodified content is copyright [employer]. Please see references footnoted in the original [employer] edition 2016 Admission Criteria Met: Yes
--- NOTE | 2017-06-18 10:38 | Progress Note ---
Assessment and Plan Assessment and plan: Left upper extremity AVF hemorrhage. Vascular surgery was consulted and suture was placed at the puncture site with controlled bleeding. DDAVP due to platelet dysfunction. Vascular believes Pt needs fistulagram, and possible angioplasty of AV access. 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 This should be completed prior to his next HD treatment or else he will likely have a similar result. ESRD. Hemodialysis as above. Hypertension. Resume antihypertensives medications. Diabetes mellitus type 2. Continue Accu-Cheks and sliding scale insulin. History Interval history: No new issues overnight. Hospitalist Physical - Constitutional Vitals: Temp Pulse Resp BP Pulse Ox 97.8 F 66 18 152/72 97 06/18/17 08:00 06/18/17 08:00 06/18/17 08:00 06/18/17 08:00 06/18/17 08:00 General appearance: Present: no acute distress - EENT Eyes: Present: PERRL, EOM intact ENT: hearing intact, clear oral mucosa, dentition normal - Neck Neck: Present: supple, normal ROM - Respiratory Respiratory effort: normal Respiratory: bilateral: CTA - Cardiovascular Rhythm: regular Heart Sounds: Present: S1 & S2. Absent: gallop, rub - Extremities Extremities: no ischemia, No edema, Full ROM - Abdominal General gastrointestinal: soft, non-tender, non-distended, normal bowel sounds - Integumentary Integumentary: Present: clear, warm, dry - Neurologic Neurologic: CNII-XII intact, moves all extremities Results - Labs CBC & Chem 7: 06/17/17 15:26 Labs: Laboratory Last Values WBC 9.9 K/mm3 (4.5-11.0) 06/17/17 15:26 RBC 4.90 M/mm3 (3.65-5.03) 06/17/17 15:26 Hgb 15.6 gm/dl (11.8-15.2) H 06/17/17 15:26 Hct 47.5 % (35.5-45.6) H 06/17/17 15:26 MCV 97 fl (84-94) H 06/17/17 15:26 MCH 32 pg (28-32) 06/17/17 15:26 MCHC 33 % (32-34) 06/17/17 15:26 RDW 15.8 % (13.2-15.2) H 06/17/17 15:26 Plt Count 235 K/mm3 (140-440) 06/17/17 15:26 Lymph % (Auto) 11.1 % (13.4-35.0) L 06/17/17 15:26 Calloway % (Auto) 9.5 % (0.0-7.3) H 06/17/17 15:26 Eos % (Auto) 1.1 % (0.0-4.3) 06/17/17 15:26 Baso % (Auto) 0.6 % (0.0-1.8) 06/17/17 15:26 Lymph # 1.1 K/mm3 (1.2-5.4) L 06/17/17 15: Calloway # 0.9 K/mm3 (0.0-0.8) H 06/17/17 15:26 Eos # 0.1 K/mm3 (0.0-0.4) 06/17/17 15:26 Baso # 0.1 K/mm3 (0.0-0.1) 06/17/17 15:26 Seg Neutrophils % 77.7 % (40.0-70.0) H 06/17/17 15: Seg Neutrophils # 7.7 K/mm3 (1.8-7.7) 06/17/17 15: PT 14.2 Sec. (12.2-14.9) 06/17/17 15:23 INR 1.05 (0.87-1.13) 06/17/17 15:23
[2017-06-18] MEDS ORDERED: HEPARIN/NS 5000 UNIT/500ML(CATH LAB) 500 ML IR ONE (10:40)
[2017-06-18] MEDS ORDERED: HEPARIN 10,000 UNITS/10 ML ONE (10:41)
[2017-06-18] MEDS ORDERED: NACL 0.9% 250ML 250 ML ONE (10:42)
[2017-06-18] MEDS ORDERED: ANCEF/STERILE WATER 2 GM/20 ML 2 GM/20 ML SYRINGE IV ONE (10:42)
[2017-06-18] MEDS ORDERED: NACL ONE (10:47)
[2017-06-18] MEDS: XYLOCAINE 2% INFILTRATI ONE ×2 (10:56→10:58)
[2017-06-18] MEDS: VERSED ONE ×2 (10:56→10:58)
[2017-06-18] MEDS: SUBLIMAZE ONE ×2 (10:56→10:58)
--- NOTE | 2017-06-18 14:16 | Event Note ---
Date: 06/18/17 Pt s/p fistulagram with balloon angioplasty. Okay to d/c home from a vascular surgery stand point once cleared medically. F/u with his outpt HD unit for HD through his avf. Okay to f/u with our service as needed as an outpt, o/w f/u with his normal vascular surgery service at the [facility].
--- NOTE | 2017-06-18 14:21 | Operative Report ---
Operative Report Operative Report: Date of Procedure: 06/18/2017 Pre-operative Diagnosis: Complications of Dialysis Access Post-operative Diagnosis: Same Procedure(s): 1. Access Left AV Fistula Was 7 [place] Sheath Venous 2. Fistulogram with Central Venogram 3. Angioplasty of Left AV Fistula with 10 x 4 Balloon 4. Radiologic Supervision with Interpretation Surgeon: Myles Lugo M.D. Bulk Truck Driver: None Anesthesia: Local and IV sedation EBL: Minimal Counts: Correct Complications: None Condition: Stable Specimen: None Indication: The patient is a 62-year-old male with history of end-stage renal disease on hemodialysis through a left arm AV fistula at an outside facility. He presented to the emergency department with prolonged bleeding after dialysis which required suture placement to control the bleeding. He is in need of a fistulogram with possible intervention. He was given the risks, benefits, and alternative procedures and consented to procedure. Fistulogram Findings: There were 2 areas of pseudoaneurysm within the body of the fistula of approximately 2-3 cm. There is possibly 60% stenosis in the fistula just proximal to these areas. The remainder of the fistula was widely patent. The central venous system including the subclavian vein, innominate vein, and SVC were widely patent. Dye refluxed back into the arterial anastomosis was widely patent arterial anastomosis. After intervention with the 10 x 4 balloon the fistula was widely patent without residual stenosis. Description of Procedure: The patient was brought to the [employer] related supine position. After he was adequately sedated his left arm was prepped and draped in normal sterile fashion. After anesthetizing the skin micropuncture technique was used to access the fistula towards the venous outflow and a 7 [place] sheath was placed also under technique. A fistulogram with central venogram was performed with the previously described findings. A 10 x 4 balloon was used to perform angioplasty of the area of stenosis. While the balloon was inflated contrast was injected so that I will refluxed back into the arterial anastomosis which was widely patent. After angioplasty the final fistulogram demonstrated widely patent fistula without significant stenosis. All balloons and wires were removed and a 4-0 chromic in pursestring fashion was used to close entry site. The wound was then dressed with Dermabond. The patient tolerated the procedure well. All sponge, needle, and instrument counts were correct. The patient was taken to the recovery area in stable condition.
[2017-06-18] MEDS ORDERED: BENADRYL IV PRN (17:39)
[2017-06-19 07:01] LABS: Basophils % (Auto) 1.7 % (0.0-1.8); Eosinophils % (Auto) 1.7 % (0.0-4.3); Hematocrit 41.3 % (35.5-45.6); Hemoglobin 13.5 gm/dl (11.8-15.2); Mean Corpuscular HGB Conc 33 % (32-34); Mean Corpuscular Hemoglobin 32 pg (28-32); Mean Corpuscular Volume 96 fl (84-94); Platelet Count 212 K/mm3 (140-440); Red Blood Count 4.28 M/mm3 (3.65-5.03); Red Cell Distribution Width 15.9 % (13.2-15.2); White Blood Count 6.1 K/mm3 (4.5-11.0)
[2017-06-19 07:07] LABS: BUN/Creatinine Ratio 5.7; Calcium 8.2 mg/dL (8.4-10.2); Chloride 93.6 mmol/L (98-107); Potassium 5.5 mmol/L (3.6-5.0)
--- NOTE | 2017-06-19 10:15 | Discharge Summary ---
Providers - Providers Date of Admission: 06/17/17 18:14 Date of discharge: 06/19/17 Attending physician: DAVIN MOHAMUD Primary care physician: [facility] Hospitalization Reason for admission: malfunctioning AVF Condition: Stable Hospital course: 62 YO Male with ESRD on HD(M,W,F), HTN, DM presented to ED for evaluation. Pt stated that he had experienced bleeding from his AV fistula site for the past 3 hours prior to admission. Pt stated that symptoms began after his site was accessed for dialysis. Pt denied fever, chills, CP, Palpitations, NVD, syncope, or recent ill contacts. Pt was seen and evaluated in ED and found to have bleeding from AV fistula site. Vascular surgery consulted, and bleeding controlled with placement of suture. Patient also underwent fistulogram with central venogram and angioplasty of left AV fistula. Patient underwent balloon angioplasty as well. Patient tolerated the procedure well. Thus with surgeon felt patient could be discharged home. Patient is to follow-up with his outpatient hemodialysis with continued hemodialysis through his aVF. Dedicated discharge time 31 minutes. Disposition: DC-01 TO HOME OR SELFCARE Time spent for discharge: 31 - Discharge Diagnoses (1) Bleeding from dialysis shunt Status: Acute Qualifiers: Encounter type: E (2) Dialysis AV fistula malfunction Status: Acute Qualifiers: Encounter type: E (3) ESRD (end stage renal disease) on dialysis Status: Acute (4) Hypertension Status: Acute Qualifiers: Hypertension type: H Core Measure Documentation - Palliative Care Palliative Care/ Comfort Measures: Not Applicable - Core Measures Any of the following diagnoses?: none Exam - Constitutional Vitals: Temp Pulse Resp BP Pulse Ox 98 F 62 18 140/74 97 06/19/17 08:00 06/19/17 08:00 06/19/17 08:00 06/19/17 08:00 06/19/17 08:00 General appearance: Present: no acute distress, well-nourished - EENT Eyes: Present: PERRL ENT: hearing intact, clear oral mucosa - Neck Neck: Present: supple, normal ROM - Respiratory Respiratory effort: normal Respiratory: bilateral: CTA - Cardiovascular Heart Sounds: Present: S1 & S2. Absent: rub, click - Extremities Extremities: pulses symmetrical, No edema Peripheral Pulses: within normal limits - Abdominal General gastrointestinal: Present: soft, non-tender, non-distended, normal bowel sounds Male genitourinary: Present: normal - Integumentary Integumentary: Present: clear, warm, dry - Musculoskeletal Musculoskeletal: gait normal, strength equal bilaterally - Psychiatric Psychiatric: appropriate mood/affect, intact judgment & insight - Neurologic Neurologic: CNII-XII intact, moves all extremities Plan Activity: no restrictions Weight Bearing Status: Full Weight Bearing Diet: renal Follow up with: PRIMARY CARE, [Primary Care Provider] - 3-5 Days TEJ BOSCH MD [Staff Physician] - 7 Days
[2017-06-19 16:43] VITALS: BP 157/81
[2017-06-20] MEDS ORDERED: NACL ONE (11:17)
== END 2017-06-19 16:05 | disposition home or self-care (01) | DRG 252 ==
LOC: ED 14:32 → 3A 18:14
PROVIDERS: ADMIT Internal Medicine; ATTEND Hospitalist
PROC: 037Y3ZZ Dilation of Upper Artery, Percutaneous Approach (ICD-10-PCS; principal; 2017-06-18)
PROC: B50W1ZZ Plain Radiography of Dialysis Shunt/Fistula using Low Osmolar Contrast (ICD-10-PCS; 2017-06-18)
DX: T82.838A Hemorrhage due to vascular prosthetic devices, implants and grafts, initial encounter (principal); N18.6 End stage renal disease; I12.0 Hypertensive chronic kidney disease with stage 5 chronic kidney disease or end stage renal disease; E11.22 Type 2 diabetes mellitus with diabetic chronic kidney disease; F12.10 Cannabis abuse, uncomplicated; Z91.013 Allergy to seafood; Z79.82 Long term (current) use of aspirin; Z90.49 Acquired absence of other specified parts of digestive tract; Z79.899 Other long term (current) drug therapy
CPT/HCPCS: 36415; 36902; 80048; 85025; 85610; C1725; C1894; J0690; J1200; J1644; J2250; J2597; J3010; J7050; Q9967

== ENCOUNTER 2020-06-30 21:19 | Emergency (ER) | payer OTHER ==
--- NOTE | 2020-06-30 21:34 | Event Note ---
ED Screening Note Date of service: 06/30/20 Time: 21:32 ED Screening Note: 65 yy male with ESRD,DM presents with difficulty walking and pain and swelling to the left foot This initial assessment/diagnostic orders/clinical plan/treatment(s) is/are subject to change based on patients health status, clinical progression and re- assessment by fellow clinical providers in the ED. Further treatment and workup at subsequent clinical providers discretion. Patient/guardian urged not to elope from the ED as their condition may be serious if not clinically assessed and managed. Initial orders include: cbc,cmp, xr foot
[2020-06-30 21:37] VITALS: BP 188/82
[2020-06-30 22:26] LABS: Calcium 8.7 mg/dL (8.4-10.2)
--- NOTE | 2020-06-30 22:29 | XRay Report ---
LEFT FOOT RADIOGRAPH, 3 VIEWS INDICATION / CLINICAL INFORMATION: pain COMPARISON: None available. FINDINGS: BONES / JOINT(S): No acute displaced fracture or subluxation. No significant arthritis. SOFT TISSUES: Mild soft tissue swelling of the foot. ADDITIONAL FINDINGS: Vascular calcifications are noted. Signer Name: Pauly Valentine MD Signed: 06/30/2020 10:24 PM Workstation Name: [id number]
[2020-06-30 22:37] LABS: Basophils # (Auto) 0.1 K/mm3 (0.0-0.1); Basophils % (Auto) 1.3 % (0.0-1.8); Eosinophils # (Auto) 0.1 K/mm3 (0.0-0.4); Eosinophils % (Auto) 1.6 % (0.0-4.3); Hematocrit 38.7 % (35.5-45.6); Hemoglobin 12.6 gm/dl (11.8-15.2); Lymphocytes # (Auto) 1.4 K/mm3 (1.2-5.4); Lymphocytes % (Auto) 18.3 % (13.4-35.0); Mean Corpuscular HGB Conc 33 % (32-34); Mean Corpuscular Volume 92 fl (84-94); Monocytes # (Auto) 1.1 K/mm3 (0.0-0.8); Monocytes % (Auto) 14.8 % (0.0-7.3); Platelet Count 218 K/mm3 (140-440); Red Blood Count 4.23 M/mm3 (3.65-5.03)
[2020-06-30 22:38] LABS: Red Cell Distribution Width 21.2 % (13.2-15.2)
--- NOTE | 2020-07-01 01:25 | Emergency Department Report ---
ED General Adult HPI - General Chief complaint: Extremity Injury, Lower Stated complaint: LEFT FOOT PAIN PUI?: No Time Seen by Provider: 07/01/20 01:12 Source: patient Mode of arrival: Wheelchair Limitations: No Limitations - History of Present Illness Initial comments: Patient is a 65-year-old male that presents emergency room with complaints of left foot pain. Patient states his left foot pain started 1 day ago. Patient states the symptoms are worsening. Patient states the pain is a 10 out of 10. Patient states the pain is better with rest. Patient states the pain is worse with palpation, movement and walking. Patient states he is having some swelling to the area. Patient states the pain is in the base of his left great toe. Patient dates she has a past medical history of end-stage renal disease, diabetes and hypertension. Pain states she is due for dialysis in 4 hours. Patient states he goes Saturday. Patient denies recent travel. Patient denies recent international travel. Patient denies exposure to the novel coronavirus. Patient denies sick contacts. Patient denies fever and chills. Patient denies cough. Patient denies diarrhea. Patient denies coming in contact with anybody with symptoms of the novel coronavirus. -: Sudden Location: left, lower extremity Severity scale (0 -10): 10 Quality: stabbing Consistency: constant Improves with: rest Worsens with: movement Associated Symptoms: denies other symptoms Treatments Prior to Arrival: none - Related Data Home Medications Medication Instructions Recorded Confirmed Last Taken Ascorbic Acid [Vitamin C with Courtney 1.5 tab PO TID 06/17/17 06/17/17 Unknown Hips] Aspirin [Adult Low Dose Aspirin EC] 81 mg PO QDAY 06/17/17 06/17/17 Unknown Calcium Acetate 4 cap PO QID 06/17/17 06/17/17 Unknown Furosemide [Lasix TAB] 120 mg PO BID 06/17/17 06/17/17 Unknown Metoprolol [Lopressor TAB] 25 mg PO BID 06/17/17 06/17/17 Unknown amLODIPine 5 mg PO QDAY 06/17/17 06/17/17 Unknown Previous Rx's Medication Instructions Recorded Last Taken Type Colchicine 0.6 mg PO DAILY #15 capsule 07/01/20 Unknown Rx methylPREDNISolone [Medrol 4MG 4 mg PO DAILY 6 Days #1 tab.ds.pk 07/01/20 Unknown Rx DOSEPAK (21 tabs)] Allergies Allergy/AdvReac Type Severity Reaction Status Date / Time shellfish derived Allergy Swelling Verified 06/17/17 14:51 ED Review of Systems ROS: Stated complaint: LEFT FOOT PAIN Other details as noted in HPI Constitutional: denies: chills, fever Eyes: denies: eye pain, eye discharge, vision change ENT: denies: ear pain, throat pain Respiratory: denies: cough, shortness of breath, wheezing Cardiovascular: denies: chest pain, palpitations Endocrine: no symptoms reported Gastrointestinal: denies: abdominal pain, nausea, diarrhea Genitourinary: denies: urgency, dysuria Musculoskeletal: denies: back pain, joint swelling, arthralgia Skin: denies: rash, lesions Neurological: denies: headache, weakness, paresthesias Psychiatric: denies: anxiety, depression Hematological/Lymphatic: denies: easy bleeding, easy bruising ED Past Medical Hx - Past Medical History Previous Medical History?: Yes Hx Hypertension: Yes Hx Congestive Heart Failure: No Hx Diabetes: Yes Hx Renal Disease: Yes Hx Asthma: No - Surgical History Past Surgical History?: Yes Hx Cholecystectomy: Yes Hx Appendectomy: Yes - Family History Family history: no significant - Social History Smoking Status: Former Smoker Substance Use Type: None - Medications Home Medications: Home Medications Medication Instructions Recorded Confirmed Last Taken Type Ascorbic Acid [Vitamin C with Courtney 1.5 tab PO TID 06/17/17 06/17/17 Unknown History Hips] Aspirin [Adult Low Dose Aspirin EC] 81 mg PO QDAY 06/17/17 06/17/17 Unknown History Calcium Acetate 4 cap PO QID 06/17/17 06/17/17 Unknown History Furosemide [Lasix TAB] 120 mg PO BID 06/17/17 06/17/17 Unknown History Metoprolol [Lopressor TAB] 25 mg PO BID 06/17/17 06/17/17 Unknown History amLODIPine 5 mg PO QDAY 06/17/17 06/17/17 Unknown History Colchicine 0.6 mg PO DAILY #15 capsule 07/01/20 Unknown Rx methylPREDNISolone [Medrol 4MG 4 mg PO DAILY 6 Days #1 tab.ds.pk 07/01/20 Unknown Rx DOSEPAK (21 tabs)] ED Physical Exam - General Limitations: No Limitations General appearance: alert, in no apparent distress - Head Head exam: Present: atraumatic, normocephalic - Eye Eye exam: Present: normal appearance - ENT ENT exam: Present: mucous membranes moist - Neck Neck exam: Present: normal inspection - Respiratory Respiratory exam: Present: normal lung sounds bilaterally. Absent: respiratory distress - Cardiovascular Cardiovascular Exam: Present: regular rate, normal rhythm. Absent: systolic murmur, diastolic murmur, rubs, gallop - GI/Abdominal GI/Abdominal exam: Present: soft, normal bowel sounds - Rectal Rectal exam: Present: deferred - Extremities Exam Extremities exam: Present: normal inspection, tenderness (To the base of the left great toe.) - Back Exam Back exam: Present: normal inspection - Neurological Exam Neurological exam: Present: alert, oriented X3 - Psychiatric Psychiatric exam: Present: normal affect, normal mood - Skin Skin exam: Present: warm, dry, intact, normal color. Absent: rash ED Course Vital Signs 06/30/20 21:34 Temperature 97.9 F Pulse Rate 76 Respiratory 18 Rate Blood Pressure 188/82 O2 Sat by Pulse 98 Oximetry - Reevaluation(s) Reevaluation #1: I discussed all results and clinical findings with patient. I discussed plan of care with patient. Patient agrees with plan of care. Patient is stable for discharge. Patient will be discharged home. Patient given discharge instructions. Patient voiced understanding of discharge instructions. 07/01/20 01:25 ED Medical Decision Making - Lab Data Result diagrams: 06/30/20 21:45 06/30/20 21:45 - Radiology Data Radiology results: report reviewed, image reviewed interpreted by me: Foot x-ray: No fracture noted, soft tissue swelling noted, no foreign body. LEFT FOOT RADIOGRAPH, 3 VIEWS INDICATION / CLINICAL INFORMATION: pain COMPARISON: None available. FINDINGS: BONES / JOINT(S): No acute displaced fracture or subluxation. No significant arthritis. SOFT TISSUES: Mild soft tissue swelling of the foot. ADDITIONAL FINDINGS: Vascular calcifications are noted. - Medical Decision Making Patient is a 65-year-old male who presents emergency room with complaints of left foot pain. Patient's labs are done essentially unremarkable except for end-stage renal disease. Patient due for dialysis in 4 hours. Patient stable for discharge. Patient clinical findings are consistent with gout. Patient will be given colchicine and steroid pack. Patient will require follow-up with his primary care and his road passenger firer for uric acid and gout work-up. - Differential Diagnosis Foot pain, gout, cellulitis, strain, sprain, fracture Critical care attestation.: If time is entered above; I have spent that time in minutes in the direct care of this critically ill patient, excluding procedure time. ED Disposition Clinical Impression: ESRD (end stage renal disease) on dialysis, Foot pain, left Gout attack Qualifiers: Gout site: foot Gout etiology: unspecified cause Laterality: left Qualified Code(s): M10.9 - Gout, unspecified Disposition: TO HOME OR SELFCARE Is pt being admited?: No Does the pt Need Aspirin: No Condition: Stable Instructions: Chronic Kidney Disease (ED), Acute Gouty Arthritis (ED), End- Stage Kidney Disease (ED) Additional Instructions: Patient to follow-up with primary care in 2 to 3 days. Patient to follow-up with road passenger firer in 2 to 3 days. Patient to continue current dialysis schedule. Patient to rest. Patient to increase water. Patient to eat a gout diet. Patient to take Tylenol as needed for pain. Patient to take meds as directed. Patient to return to the ER if condition worsens, changes or new symptoms arise. Prescriptions: Colchicine 0.6 mg PO DAILY #15 capsule methylPREDNISolone [Medrol 4MG DOSEPAK (21 tabs)] 4 mg PO DAILY 6 Days #1 tab.wes Referrals: PRIMARY CARE, [Primary Care Provider] - 2-3 Days Time of Disposition: 01:30
[2020-07-01] MEDS ORDERED: methylPREDNISolone Sod Succinate 125 MG/2 ML INJ IM ONE (01:30)
== END 2020-07-01 01:52 | disposition home or self-care (01) ==
LOC: ED 21:19
DX: I10 Essential (primary) hypertension (principal); E13.22 Other specified diabetes mellitus with diabetic chronic kidney disease; N18.6 End stage renal disease; Z99.2 Dependence on renal dialysis; Z87.891 Personal history of nicotine dependence; Z90.49 Acquired absence of other specified parts of digestive tract; Z79.899 Other long term (current) drug therapy; Z91.013 Allergy to seafood
CPT/HCPCS: 36415; 73630; 80053; 85025; 96372; 99283; J2930

== ENCOUNTER 2022-05-09 09:35 | Emergency (ER) | payer OTHER ==
[2022-05-09] MEDS ORDERED: SODIUM CHLORIDE 0.9% IV ONE (11:52)
[2022-05-09] MEDS ORDERED: DESMOPRESSIN ACETATE IV ONE (11:52)
[2022-05-09] MEDS ORDERED: hydrALAZINE 20 MG/1 ML INJ IV STA (11:52)
--- NOTE | 2022-05-09 11:53 | Emergency Department Report ---
ED General Adult HPI - General Chief complaint: Extremity Injury, Upper Stated complaint: FISTULA BLEEDING PUI?: No Time Seen by Provider: 05/09/22 11:20 Source: patient, EMS ( EMS documentation not available at time of chart dictation ), RN notes reviewed Mode of arrival: Stretcher Limitations: No Limitations - History of Present Illness Initial comments: The patient was evaluated in the emergency department for symptoms described in the history of present illness. He/she was evaluated in the context of the global COVID-19 pandemic, which necessitated consideration that the patient might be at risk for infection with the virus that causes COVID-19. Institutional protocols and algorithms that pertain to the evaluation of patients at risk for COVID-19 are in a state of rapid change based on information released by regulatory bodies including the CDC and federal and state organizations. These policies and algorithms were followed during the patient's care in the emergency department. Please note that these policies, procedures and recommendations changed on a rapid basis. This is a 67-year-old gentleman who presents to the ER today with complaint of resolved left upper extremity fistula bleeding. This started after the completion of his hemodialysis session when he was decannulated. He reports he does not use systemic anticoagulation. He had a pressure dressing applied The patient received his normal hemodialysis today. He received 3 hours. He denies physical pain. He denies shortness of breath. He feels like he is at his postdialysis body weight appropriately. He does not take systemic anti coagulation. A pressure dressing was applied to the left upper extremity prior to my personal evaluation. He reports that he feels like he is ready to be discharged. -: This morning Location: left, upper extremity Consistency: now resolved Improves with: other (Application of pressure dressing) Worsens with: none Associated Symptoms: denies other symptoms - Related Data Home Medications Medication Instructions Recorded Confirmed Last Taken Ascorbic Acid [Vitamin C with Courtney 1.5 tab PO TID 06/17/17 06/17/17 Unknown Hips] Aspirin [Adult Low Dose Aspirin EC] 81 mg PO QDAY 06/17/17 06/17/17 Unknown Calcium Acetate 4 cap PO QID 06/17/17 06/17/17 Unknown Furosemide [Lasix TAB] 120 mg PO BID 06/17/17 06/17/17 Unknown Metoprolol [Lopressor TAB] 25 mg PO BID 08/07/17 08/07/17 Unknown amLODIPine 5 mg PO QDAY 06/17/17 06/17/17 Unknown Previous Rx's Medication Instructions Recorded Last Taken Type Colchicine 0.6 mg PO DAILY #15 capsule 07/01/20 Unknown Rx methylPREDNISolone [Medrol 4MG 4 mg PO DAILY 6 Days #1 tab.ds.pk 07/01/20 Unknown Rx DOSEPAK (21 tabs)] Allergies Allergy/AdvReac Type Severity Reaction Status Date / Time shellfish derived Allergy Swelling Verified 05/09/22 09:43 ED Review of Systems ROS: Stated complaint: FISTULA BLEEDING Other details as noted in HPI Comment: All other systems reviewed and negative ED Past Medical Hx - Past Medical History Hx Hypertension: Yes Hx Congestive Heart Failure: No Hx Diabetes: Yes Hx Renal Disease: Yes Hx Asthma: No - Surgical History Hx Cholecystectomy: Yes Hx Appendectomy: Yes - Social History Smoking Status: Unknown if ever smoked - Medications Home Medications: Home Medications Medication Instructions Recorded Confirmed Last Taken Type Ascorbic Acid [Vitamin C with Courtney 1.5 tab PO TID 06/17/17 06/17/17 Unknown History Hips] Aspirin [Adult Low Dose Aspirin EC] 81 mg PO QDAY 06/17/17 06/17/17 Unknown History Calcium Acetate 4 cap PO QID 06/17/17 06/17/17 Unknown History Furosemide [Lasix TAB] 120 mg PO BID 06/17/17 06/17/17 Unknown History Metoprolol [Lopressor TAB] 25 mg PO BID 06/17/17 06/17/17 Unknown History amLODIPine 5 mg PO QDAY 06/17/17 06/17/17 Unknown History Colchicine 0.6 mg PO DAILY #15 capsule 07/01/20 Unknown Rx methylPREDNISolone [Medrol 4MG 4 mg PO DAILY 6 Days #1 tab.ds.pk 07/01/20 Unknown Rx DOSEPAK (21 tabs)] ED Physical Exam - General Limitations: No Limitations General appearance: alert, in no apparent distress - Head Head exam: Present: atraumatic, normocephalic - Eye Eye exam: Present: normal appearance - ENT ENT exam: Present: normal exam, normal orophraynx, mucous membranes moist, normal external ear exam - Neck Neck exam: Present: normal inspection, full ROM. Absent: tenderness, meningismus - Respiratory Respiratory exam: Present: rales, other (Very faint rales are appreciated in the lung bases). Absent: respiratory distress, wheezes, rhonchi, stridor - Cardiovascular Cardiovascular Exam: Present: regular rate, normal rhythm, normal heart sounds, JVD. Absent: bradycardia, tachycardia, irregular rhythm, systolic murmur, diastolic murmur, rubs, gallop - GI/Abdominal GI/Abdominal exam: Present: soft. Absent: distended, tenderness, guarding, rebound, rigid, pulsatile mass - Rectal Rectal exam: Present: deferred - Extremities Exam Extremities exam: Present: full ROM, other (2+ pulses noted in the bilateral upper and lower extremities. There is no palpable cord. negative Homans sign. Muscular compartments are soft. The pelvis is stable.). Absent: normal inspection (There is a left upper extremity fistula appreciated, with an appropriate thrill, and no redness, pus or streaking. There is a punctate area of bleeding noted from the fistula), calf tenderness - Back Exam Back exam: Present: normal inspection. Absent: tenderness, CVA tenderness (R), CVA tenderness (L), paraspinal tenderness, vertebral tenderness - Neurological Exam Neurological exam: Present: alert, oriented X3, normal gait, other (No facial droop. Tongue midline. Extraocular movements intact bilaterally. Facial sensation intact to light touch in V1, V2, V3 distribution bilaterally. 5 and a 5 strength in 4 extremities. Sensation intact to light touch in 4 extremi ties.). Absent: motor sensory deficit - Psychiatric Psychiatric exam: Present: normal affect, normal mood - Skin Skin exam: Present: warm, dry, intact, normal color. Absent: rash ED Course Vital Signs 05/09/22 05/09/22 05/09/22 09:40 11:02 11:53 Temperature 97.6 F Pulse Rate 69 Blood Pressure 200/90 [Left] O2 Sat by Pulse 99 100 Oximetry 05/09/22 13:39 Temperature Pulse Rate 71 Blood Pressure [Left] O2 Sat by Pulse Oximetry - Reevaluation(s) Reevaluation #1: 05/09/22 13:43 Differential diagnosis, including but not limited to: End-stage renal disease on hemodialysis, hypertension, bleeding fistula, dysfunctional platelets, volume overload, electrolyte derangement Assessment and plan: 67-year-old gentleman with a primary complaint of bleeding left upper extremity fistula. I have taken off dressing, and he has very small amount of bleeding/oozing from the fistula. However, it is controllable. I have placed a 2 x 2 gauze, then applied Curlex, then applied Dennis wrap. Bleeding is now controlled. Laboratory studies are essentially unremarkable. He is medicated with hydralazine as well as desmopressin. He is saturating at 98% on room air, and has no pulmonary complaints. Chest x-ray shows no evidence of florid pulmonary overload. The patient is asking to be discharged. He will be discharged. Return precautions are reviewed. All questions answered. ED Medical Decision Making - Lab Data Result diagrams: 05/09/22 12:07 05/09/22 12:07 Vital Signs 05/09/22 05/09/22 05/09/22 09:40 11:02 11:53 Temperature 97.6 F Pulse Rate 69 Blood Pressure 200/90 [Left] O2 Sat by Pulse 99 100 Oximetry 05/09/22 13:39 Temperature Pulse Rate 71 Blood Pressure [Left] O2 Sat by Pulse Oximetry Lab Results 05/09/22 05/09/22 05/09/22 Range/Units 12:07 12:07 12:07 WBC 4.5 (4.5-11.0) K/mm3 RBC 3.93 (3.65-5.03) M/mm3 Hgb 11.8 (11.8-15.2) gm/dl Hct 36.4 (35.5-45.6) % MCV 93 (84-94) fl MCH 30 (28-32) pg MCHC 32 (32-34) % RDW 23.9 H (13.2-15.2) % Plt Count 140 (140-440) K/mm3 Lymph % (Auto) 18.0 (13.4-35.0) % [place] % (Auto) 13.9 H (0.0-7.3) % Eos % (Auto) 3.7 (0.0-4.3) % Baso % (Auto) 0.8 (0.0-1.8) % Lymph # (Auto) 0.8 L (1.2-5.4) K/mm3 [place] # (Auto) 0.6 (0.0-0.8) K/mm3 Eos # (Auto) 0.2 (0.0-0.4) K/mm3 Baso # (Auto) 0.0 (0.0-0.1) K/mm3 Seg Neutrophils % 63.6 (40.0-70.0) % Seg Neutrophils # 2.9 (1.8-7.7) K/mm3 PT 14.2 (12.2-14.9) Sec. INR 0.97 (0.87-1.13) APTT 35.5 (24.2-36.6) Sec. Sodium 144 (137-145) mmol/L Potassium 4.7 (3.6-5.0) mmol/L Chloride 97.5 L (98-107) mmol/L Carbon Dioxide 29 (22-30) mmol/L Anion Gap 22 mmol/L BUN 20 (9-20) mg/dL Creatinine 5.6 H (0.8-1.3) mg/dL Estimated GFR 12 ml/min BUN/Creatinine Ratio 4 % Glucose 76 (75-100) mg/dL Calcium 9.3 (8.4-10.2) mg/dL NT-Pro-B Natriuret Pep 57055 H (0-900) pg/mL - Radiology Data Radiology results: pending, report reviewed, image reviewed CHEST 2 VIEWS INDICATION / CLINICAL INFORMATION: crackles and rales after hd. COMPARISON: None available. FINDINGS: SUPPORT DEVICES: None. HEART / MEDIASTINUM: Heart size is at the upper limits of normal. LUNGS / PLEURA: There is mild central pulmonary venous congestion. No evidence for infiltrate, pleural fluid or pneumothorax. ADDITIONAL FINDINGS: No significant additional findings. IMPRESSION: 1. No acute findings. Borderline heart size and mild central pulmonary venous congestion. Signer Name: Abhi Mart Jr, MD Signed: 05/09/2022 11:18 AM Workstation Name: [id number] Critical care attestation.: If time is entered above; I have spent that time in minutes in the direct care of this critically ill patient, excluding procedure time. ED Disposition Clinical Impression: ESRD (end stage renal disease) on dialysis, Hypertension, Bleeding from dialysis shunt Disposition: 01 HOME / SELF CARE / HOMELESS Is pt being admited?: No Does the pt Need Aspirin: No Condition: Good Instructions: Hypertension (ED) Additional Instructions: Please continue current outpatient medications. Please follow-up with your outpatient hemodialysis as scheduled. 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 Please return to the emergency room right away with new pain, worsened pain, migration of pain, projectile vomiting, change in mental status, confusion, inability tolerate liquid feeds, new, worsened or different symptoms not present on the initial emergency room evaluation Referrals: [facility] [Other] - 3-5 Days Forms: Work/School Release Form(ED)
--- NOTE | 2022-05-09 12:23 | XRay Report ---
CHEST 2 VIEWS INDICATION / CLINICAL INFORMATION: crackles and rales after hd. COMPARISON: None available. FINDINGS: SUPPORT DEVICES: None. HEART / MEDIASTINUM: Heart size is at the upper limits of normal. LUNGS / PLEURA: There is mild central pulmonary venous congestion. No evidence for infiltrate, pleura l fluid or pneumothorax. ADDITIONAL FINDINGS: No significant additional findings. IMPRESSION: 1. No acute findings. Borderline heart size and mild central pulmonary venous congestion. Signer Name: Abhi Mart Jr, MD Signed: 05/09/2022 12:18 PM Workstation Name: [id number]
[2022-05-09 12:50] LABS: Basophils % (Auto) 0.8 % (0.0-1.8); Eosinophils # (Auto) 0.2 K/mm3 (0.0-0.4); Eosinophils % (Auto) 3.7 % (0.0-4.3); Hematocrit 36.4 % (35.5-45.6); Hemoglobin 11.8 gm/dl (11.8-15.2); Lymphocytes # (Auto) 0.8 K/mm3 (1.2-5.4); Mean Corpuscular HGB Conc 32 % (32-34); Mean Corpuscular Volume 93 fl (84-94); Monocytes # (Auto) 0.6 K/mm3 (0.0-0.8); Monocytes % (Auto) 13.9 % (0.0-7.3); Platelet Count 140 K/mm3 (140-440); Red Blood Count 3.93 M/mm3 (3.65-5.03)
[2022-05-09 12:51] LABS: Red Cell Distribution Width 23.9 % (13.2-15.2)
[2022-05-09 12:59] LABS: INR 0.97 (0.87-1.13)
[2022-05-09 13:00] LABS: Partial Thromboplastin Time 35.5 Sec. (24.2-36.6)
[2022-05-09 13:12] LABS: Calcium 9.3 mg/dL (8.4-10.2)
[2022-05-09 14:51] VITALS: BP 165/71
== END 2022-05-09 14:50 | disposition home or self-care (01) ==
LOC: ED 09:35
DX: T82.838A Hemorrhage due to vascular prosthetic devices, implants and grafts, initial encounter (principal); I12.0 Hypertensive chronic kidney disease with stage 5 chronic kidney disease or end stage renal disease; E11.22 Type 2 diabetes mellitus with diabetic chronic kidney disease; N18.6 End stage renal disease; Z99.2 Dependence on renal dialysis; Z90.89 Acquired absence of other organs; Z98.890 Other specified postprocedural states; Z91.013 Allergy to seafood; Y83.9 Surgical procedure, unspecified as the cause of abnormal reaction of the patient, or of later complication, without mention of misadventure at the time of the procedure; Y92.89 Other specified places as the place of occurrence of the external cause
CPT/HCPCS: 36415; 71046; 80048; 83880; 85025; 85610; 85730; 96365; 96375; 99284; J0360; J2597; 96374